=== PATIENT | male | born 1965 | race African-American/Black ===

== ENCOUNTER 2017-01-08 11:34 | Emergency (ER) | payer MEDICAID ==
[~2017-01-08] VITALS: Ht 175.3 cm; Wt 137.0 kg
[~2017-01-08 11:34] MED LIST: ASPI-1079 PO; ASPI-518 PO; FAMO20TA96 PO; LANS15CA5 PO; METF-240; METO50TA95 PO; NASOI NS
[2017-01-08 12:44] VITALS: BP 134/97
== END 2017-01-08 14:39 | disposition home or self-care (01) ==
LOC: ER 11:59
DX: M25.562 Pain in left knee (principal); G89.29 Other chronic pain; Z79.82 Long term (current) use of aspirin; Z88.6 Allergy status to analgesic agent; Z79.899 Other long term (current) drug therapy
CPT/HCPCS: 99284

== ENCOUNTER 2017-03-26 18:39 | Emergency (ER) | payer MEDICAID ==
[~2017-03-26] VITALS: Ht 154.9 cm; Wt 118.0 kg
[~2017-03-26 18:39] MED LIST changes: -METF-240; +METF500T4
[2017-03-26 19:11] VITALS: BP 138/84
== END 2017-03-27 01:08 | disposition left against medical advice (07) ==
LOC: ER 03-27 01:02
DX: M25.562 Pain in left knee (principal); Z53.21 Procedure and treatment not carried out due to patient leaving prior to being seen by health care provider

== ENCOUNTER 2017-12-26 19:08 | Emergency (ER) | payer MEDICAID ==
[~2017-12-26 19:08] MED LIST changes: +FAMO-135 PO; -FAMO20TA96 PO; +LANS15CA12 PO; -LANS15CA5 PO
== END 2017-12-26 21:04 | disposition left against medical advice (07) ==
LOC: ER 20:30
DX: Z53.21 Procedure and treatment not carried out due to patient leaving prior to being seen by health care provider (principal)

== ENCOUNTER 2019-02-18 11:34 | Emergency (ER) | payer MEDICAID ==
[~2019-02-18] VITALS: Ht 182.9 cm; Wt 118.0 kg
[~2019-02-18 11:34] MED LIST changes: -ASPI-1079 PO; -FAMO-135 PO; -LANS15CA12 PO; +METF-414 PO; -METF500T4; +SIMV20TA6 PO
[2019-02-18] MEDS ORDERED: SODIUM CHLORIDE 0.9% 1,000 ML IV ONE ×3 (11:55→15:30)
[2019-02-18 12:27] LABS: HEMATOCRIT. 36.5 % (42.0-52.0); HEMOGLOBIN. 12.2 g/dL (14.0-18.0); MEAN CORPUSCULAR HEMOGLOBIN 29.7 pg (28.0-32.0); MEAN CORPUSCULAR VOLUME 88.9 fL (80.0-94.0); MEAN PLATELET VOLUME 7.9 fl (7.4-10.4); PLATELET 258 x1000/uL (130-400); RED CELL DISTRIBUTION WIDTH 17.2 % (11.6-14.6)
[2019-02-18 12:31] LABS: CHLORIDE 106 mEq/L (98-107)
[2019-02-18 12:33] LABS: PROTHROMBIN TIME 10.7 sec (9.6-11.0)
[2019-02-18] MEDS ORDERED: INSULIN REGULAR (HUMULIN R) 300UNITS/3ML SUBCUT ONE (13:00)
[2019-02-18 13:45] LABS: PLATELET ESTIMATE NORMAL
[2019-02-18] MEDS ORDERED: INSULIN REGULAR (HUMULIN R) 300UNITS/3ML SUBCUT NR (13:45)
[2019-02-18 16:30] VITALS: BP 165/91
[2019-02-25] MEDS ORDERED: GABA-531 MT (11:57)
== END 2019-02-18 16:50 | disposition home or self-care (01) ==
LOC: ER 11:34
DX: E11.65 Type 2 diabetes mellitus with hyperglycemia (principal); I10 Essential (primary) hypertension; Z88.5 Allergy status to narcotic agent; Z79.84 Long term (current) use of oral hypoglycemic drugs; Z79.82 Long term (current) use of aspirin; Z79.899 Other long term (current) drug therapy
CPT/HCPCS: 36415; 80053; 82962; 84484; 85025; 85610; 93005; 96360; 96361; 99284; J1815; J7030

== ENCOUNTER 2020-04-12 18:05 | Emergency (ER) | payer MEDICAID ==
[~2020-04-12] VITALS: Ht 177.8 cm; Wt 110.0 kg
[~2020-04-12 18:05] MED LIST changes: +GABA-531 MT; -METF-414 PO; -NASOI NS; +SIMV-43 PO; -SIMV20TA6 PO
[2020-04-12] MEDS ORDERED: INSULIN REGULAR (HUMULIN R) 300UNITS/3ML SUBCUT ONE (19:00)
[2020-04-12] MEDS ORDERED: METOPROLOL TARTRATE 25MG TABLET PO ONE (19:00)
[2020-04-12] MEDS ORDERED: ASPIRIN 81MG TABLET PO ONE (19:00)
[2020-04-12 19:28] LABS: BASOPHILS % 0.6 % (0.0-2.0); EOSINOPHILS % 1.7 % (0.0-5.0); HEMATOCRIT. 46.1 % (42.0-52.0); HEMOGLOBIN. 15.2 g/dL (14.0-18.0); LYMPHOCYTES % 18.7 % (20.0-50.0); MEAN CORPUSCULAR HEMOGLOBIN 29.5 pg (28.0-32.0); MEAN CORPUSCULAR VOLUME 89.3 fL (80.0-94.0); MEAN PLATELET VOLUME 8.7 fl (7.4-10.4); MONOCYTES % 11.5 % (2.0-8.0); NEUTROPHILS % 67.5 % (40.0-76.0); PLATELET 223 x1000/uL (130-400); RED BLOOD CELL COUNT 5.16 mill/uL (4.7-6.1); RED CELL DISTRIBUTION WIDTH 14.3 % (11.6-14.6)
[2020-04-12 19:39] LABS: D-DIMER 1.24 mg/L FEU (<0.50); PROTHROMBIN TIME 10.4 sec (9.6-11.0)
[2020-04-12 19:41] LABS: CHLORIDE 103 mEq/L (98-107)
[2020-04-12 21:02] VITALS: BP 136/80
== END 2020-04-12 22:05 | disposition left against medical advice (07) ==
LOC: ER 18:05 → CANBEDREQ 22:43
DX: I48.91 Unspecified atrial fibrillation (principal); E11.9 Type 2 diabetes mellitus without complications; I10 Essential (primary) hypertension; Z79.82 Long term (current) use of aspirin; Z88.6 Allergy status to analgesic agent; Z79.899 Other long term (current) drug therapy
CPT/HCPCS: 36415; 71045; 80053; 82962; 83880; 84484; 85025; 85379; 85610; 85730; 93005; 96372; 99285; J1815; Z7610

== ENCOUNTER 2020-06-30 23:33 | Emergency (ER) | payer MEDICAID ==
[~2020-06-30] VITALS: Ht 175.3 cm; Wt 125.0 kg
[2020-07-01 02:11] LABS: CHLORIDE 107 mEq/L (98-107)
[2020-07-01 02:16] LABS: CLARITY URINE CLEAR (CLEAR); COLOR URINE YELLOW (YELLOW); KETONES URINE TRACE (NEGATIVE); LEUKOCYTE ESTERASE URINE NEGATIVE (NEGATIVE); NITRITE URINE NEGATIVE (NEGATIVE); OCCULT BLOOD URINE NEGATIVE (NEGATIVE); PROTEIN URINE TRACE (NEGATIVE); SPECIFIC GRAVITY URINE 1.033 (1.005-1.030)
[2020-07-01 02:17] LABS: BASOPHILS % 0.9 % (0.0-2.0); EOSINOPHILS % 1.3 % (0.0-5.0); HEMATOCRIT. 46.4 % (42.0-52.0); HEMOGLOBIN. 15.4 g/dL (14.0-18.0); LYMPHOCYTES % 9.6 % (20.0-50.0); MEAN CORPUSCULAR HEMOGLOBIN 29.3 pg (28.0-32.0); MEAN CORPUSCULAR VOLUME 88.3 fL (80.0-94.0); MEAN PLATELET VOLUME 8.2 fl (7.4-10.4); MONOCYTES % 9.5 % (2.0-8.0); NEUTROPHILS % 78.7 % (40.0-76.0); PLATELET 239 x1000/uL (130-400); RED BLOOD CELL COUNT 5.25 mill/uL (4.7-6.1); RED CELL DISTRIBUTION WIDTH 15.1 % (11.6-14.6)
[2020-07-01 02:21] LABS: BETA HYDROXYBUTYRATE 0.1 mMol/L (0.0-0.3)
[2020-07-01 02:22] VITALS: BP 155/93
[2020-07-01] MEDS ORDERED: MAGNESIUM/ALUMINUM HYDROXIDE/SIMETHICONE 30ML UDC PO STA (03:09)
[2020-07-01] MEDS ORDERED: DICYCLOMINE 10 MG/5 ML ORAL SYR PO STA (03:18)
[2020-07-01] MEDS ORDERED: VISCOUS LIDOCAINE 2% 15 ML UDC PO STA (03:18)
== END 2020-07-01 04:02 | disposition home or self-care (01) ==
LOC: ER 23:33
DX: R07.89 Other chest pain (principal); I48.91 Unspecified atrial fibrillation; E78.00 Pure hypercholesterolemia, unspecified; I10 Essential (primary) hypertension; E11.649 Type 2 diabetes mellitus with hypoglycemia without coma; Z79.4 Long term (current) use of insulin; Z88.8 Allergy status to other drugs, medicaments and biological substances; Z88.6 Allergy status to analgesic agent; Z79.899 Other long term (current) drug therapy
CPT/HCPCS: 36415; 71045; 80053; 81003; 82010; 82962; 84484; 85025; 93005; 99284

== ENCOUNTER 2020-10-05 02:50 | Emergency (ER) | payer MEDICAID ==
[~2020-10-05] VITALS: Ht 172.7 cm; Wt 122.0 kg
[2020-10-05 03:14] VITALS: BP 158/101
== END 2020-10-05 06:59 | disposition left against medical advice (07) ==
LOC: ER 02:50
DX: Z53.21 Procedure and treatment not carried out due to patient leaving prior to being seen by health care provider (principal)

== ENCOUNTER 2021-05-27 15:59 | Inpatient (IN) | payer MEDICAID ==
[~2021-05-27] VITALS: Ht 177.8 cm; Wt 134.5 kg
[~2021-05-27 15:59] MED LIST changes: -GABA-531 MT; +GABA-532 MT
[2021-05-27 18:17] LABS: BASOPHILS % 0.9 % (0.0-2.0); HEMATOCRIT. 53.6 % (42.0-52.0); HEMOGLOBIN. 17.9 g/dL (14.0-18.0); LYMPHOCYTES % 14.1 % (20.0-50.0); MEAN CORPUSCULAR HEMOGLOBIN 29.9 pg (28.0-32.0); MEAN CORPUSCULAR VOLUME 89.4 fL (80.0-94.0); MEAN PLATELET VOLUME 8.3 fl (7.4-10.4); MONOCYTES % 9.2 % (2.0-8.0); NEUTROPHILS % 73.8 % (40.0-76.0); PLATELET 185 x1000/uL (130-400); RED BLOOD CELL COUNT 5.99 mill/uL (4.7-6.1); RED CELL DISTRIBUTION WIDTH 14.8 % (11.6-14.6)
[2021-05-27 18:23] LABS: CHLORIDE 103 mEq/L (98-107)
[2021-05-27] MEDS ORDERED: DEXTROSE 50% WATER 50ML SYRINGE IV PRN (22:15)
[2021-05-27] MEDS: INSULIN LISPRO (MEDIUM DOSE) 100 UNITS/ML SUBCUT SCH (22:30)
[2021-05-27] MEDS: BLOOD SUGAR DIAGNOSTIC STRIP TEST SCH (22:30)
[2021-05-27] MEDS: ENOXAPARIN 30MG/0.3ML SYR SUBCUT SCH (23:58)
[2021-05-27] MEDS: ATORVASTATIN CALCIUM 40MG TABLET PO SCH (23:58)
[2021-05-27] MEDS: LISINOPRIL 20MG TABLET PO SCH (23:59)
[2021-05-27] MEDS: ASPIRIN 81MG EC TABLET PO SCH (23:59)
[2021-05-28] MEDS ORDERED: ACETAMINOPHEN 325MG TABLET PO PRN (06:30)
[2021-05-28] MEDS: INSULIN LISPRO (MEDIUM DOSE) 100 UNITS/ML SUBCUT SCH ×4 (07:00→23:07)
[2021-05-28] MEDS: BLOOD SUGAR DIAGNOSTIC STRIP TEST SCH ×4 (07:17→21:00)
[2021-05-28] MEDS: ASPIRIN 81MG EC TABLET PO SCH (09:22)
[2021-05-28] MEDS: METOPROLOL TARTRATE 50MG TABLET PO SCH ×2 (09:24)
[2021-05-28] MEDS: LISINOPRIL 20MG TABLET PO SCH (09:25)
[2021-05-28] MEDS: ENOXAPARIN 30MG/0.3ML SYR SUBCUT SCH (09:28)
[2021-05-28] MEDS ORDERED: DEXTROSE 50% WATER 50ML SYRINGE IV PRN (10:15)
[2021-05-28] MEDS ORDERED: MAGNESIUM/ALUMINUM HYDROXIDE/SIMETHICONE 30ML UDC PO PRN (10:15)
[2021-05-28] MEDS ORDERED: CLONIDINE 0.1MG TABLET PO PRN (10:15)
[2021-05-28] MEDS ORDERED: IOHEXOL-350 100 ML BOTTLE ONE (10:43)
[2021-05-28] MEDS: GUAIFENESIN 600MG ER TABLET PO SCH ×2 (11:00→23:47)
[2021-05-28] MEDS ORDERED: ENOXAPARIN 80MG/0.8ML SYR SUBCUT NR (12:00)
[2021-05-28] MEDS: DILTIAZEM HCL 60MG TABLET PO SCH ×2 (13:11→18:00)
[2021-05-28 19:40] LABS: INR 1.1; PROTHROMBIN TIME 11.6 sec (9.6-11.0)
[2021-05-28] MEDS: ENOXAPARIN 100MG/ML SYR SUBCUT SCH (22:00)
[2021-05-28] MEDS: ATORVASTATIN CALCIUM 40MG TABLET PO SCH (23:47)
[2021-05-29] VITALS (17 sets, daily range): BP systolic 116–160; BP diastolic 34–96
[2021-05-29] MEDS: DILTIAZEM HCL 60MG TABLET PO SCH ×2 (03:06→06:00)
[2021-05-29] MEDS ORDERED: LORA10CA MT (05:14)
[2021-05-29 07:46] LABS: BASOPHILS % 0.6 % (0.0-2.0); EOSINOPHILS % 2.9 % (0.0-5.0); HEMATOCRIT. 49.9 % (42.0-52.0); HEMOGLOBIN. 16.4 g/dL (14.0-18.0); LYMPHOCYTES % 17.1 % (20.0-50.0); MEAN CORPUSCULAR HEMOGLOBIN 29.7 pg (28.0-32.0); MEAN CORPUSCULAR VOLUME 90.4 fL (80.0-94.0); MEAN PLATELET VOLUME 8.7 fl (7.4-10.4); MONOCYTES % 13.9 % (2.0-8.0); NEUTROPHILS % 65.5 % (40.0-76.0); PLATELET 163 x1000/uL (130-400); RED BLOOD CELL COUNT 5.52 mill/uL (4.7-6.1); RED CELL DISTRIBUTION WIDTH 14.5 % (11.6-14.6)
[2021-05-29 08:18] LABS: CHLORIDE 106 mEq/L (98-107)
[2021-05-29] MEDS: PANTOPRAZOLE SODIUM 40 MG/VIAL IV SCH (08:32)
[2021-05-29] MEDS: LISINOPRIL 20MG TABLET PO SCH (08:33)
[2021-05-29] MEDS: METOPROLOL TARTRATE 50MG TABLET PO SCH ×2 (08:33→21:05)
[2021-05-29] MEDS: ASPIRIN 81MG EC TABLET PO SCH (08:33)
[2021-05-29] MEDS: GUAIFENESIN 600MG ER TABLET PO SCH ×2 (08:34→21:04)
[2021-05-29] MEDS: BLOOD SUGAR DIAGNOSTIC STRIP TEST SCH ×4 (08:34→21:00)
[2021-05-29] MEDS: INSULIN LISPRO (MEDIUM DOSE) 100 UNITS/ML SUBCUT SCH ×4 (08:36→21:04)
[2021-05-29 08:38] LABS: PHOSPHORUS 2.7 mg/dL (2.5-4.9)
[2021-05-29 08:40] LABS: LDL CHOLESTEROL 87 mg/dL (5-100)
[2021-05-29 08:41] LABS: T4 FREE 1.18 ng/dL (0.76-1.46)
[2021-05-29 08:44] LABS: HDL CHOLESTEROL 34 mg/dL (40-59)
[2021-05-29] MEDS: ENOXAPARIN 100MG/ML SYR SUBCUT SCH (10:22)
[2021-05-29 19:59] LABS: INR 1.1; PROTHROMBIN TIME 11.4 sec (9.6-11.0)
[2021-05-29] MEDS: ATORVASTATIN CALCIUM 40MG TABLET PO SCH (21:04)
[2021-05-29] MEDS: ENOXAPARIN 150MG/ML SYR SUBCUT SCH (21:05)
[2021-05-30] VITALS (10 sets, daily range): BP systolic 117–155; BP diastolic 60–100
[2021-05-30 05:44] LABS: BASOPHILS % 0.8 % (0.0-2.0); EOSINOPHILS % 3.7 % (0.0-5.0); HEMATOCRIT. 48.4 % (42.0-52.0); LYMPHOCYTES % 15.9 % (20.0-50.0); MEAN CORPUSCULAR HEMOGLOBIN 29.9 pg (28.0-32.0); MEAN CORPUSCULAR VOLUME 90.3 fL (80.0-94.0); MEAN PLATELET VOLUME 8.5 fl (7.4-10.4); MONOCYTES % 12.6 % (2.0-8.0); PLATELET 161 x1000/uL (130-400); RED BLOOD CELL COUNT 5.36 mill/uL (4.7-6.1); RED CELL DISTRIBUTION WIDTH 14.5 % (11.6-14.6)
[2021-05-30 05:47] LABS: CHLORIDE 105 mEq/L (98-107)
[2021-05-30] MEDS: BLOOD SUGAR DIAGNOSTIC STRIP TEST SCH ×4 (07:30→21:04)
[2021-05-30] MEDS: PANTOPRAZOLE SODIUM 40 MG/VIAL IV SCH (08:20)
[2021-05-30] MEDS: INSULIN LISPRO (MEDIUM DOSE) 100 UNITS/ML SUBCUT SCH ×4 (08:21→21:07)
[2021-05-30] MEDS: LISINOPRIL 20MG TABLET PO SCH (08:23)
[2021-05-30] MEDS: ASPIRIN 81MG EC TABLET PO SCH (08:23)
[2021-05-30] MEDS: GUAIFENESIN 600MG ER TABLET PO SCH ×2 (08:23→20:03)
[2021-05-30] MEDS: ENOXAPARIN 150MG/ML SYR SUBCUT SCH ×2 (08:25→21:09)
[2021-05-30] MEDS: METOPROLOL TARTRATE 50MG TABLET PO SCH ×2 (08:25→20:05)
[2021-05-30 11:00] LABS: BG BASE EXCESS 2.3 mmol/L (-2.0-2.0); BG DEOXYHEMOGLOBIN 12.5 % (0.0-5.0); BG FRACTION INSPIRED OXYGEN 21; BG HCO3 ACT 30.5 mmol/L (22.0-26.0); BG METHEMOGLOBIN 0.2 % (0.0-1.5); BG OXYGEN SATURATION 87.3 % (92.0-98.5); BG OXYHEMOGLOBIN 86.3 % (94.0-97.0); BG PCO2 61.8 mmHg (35.0-45.0); BG PH 7.311 (7.350-7.450); BG SAMPLE SITE RIGHT RADIAL; BG TOTAL HEMOGLOBIN 16.3 g/dL (12.0-18.0); BG VENT MODE ROOM AIR
[2021-05-30] MEDS: ATORVASTATIN CALCIUM 40MG TABLET PO SCH (20:03)
[2021-05-31] VITALS: BP 136/85
[2021-05-31] MEDS: BLOOD SUGAR DIAGNOSTIC STRIP TEST SCH ×3 (07:42→17:14)
[2021-05-31] MEDS: FAMOTIDINE 20MG/2ML VIAL IV SCH ×2 (08:46→09:00)
[2021-05-31] MEDS: ASPIRIN 81MG EC TABLET PO SCH (08:51)
[2021-05-31] MEDS: GUAIFENESIN 600MG ER TABLET PO SCH ×2 (08:51→09:00)
[2021-05-31 08:57] VITALS: BP 152/112
[2021-05-31] MEDS: LISINOPRIL 20MG TABLET PO SCH (08:58)
[2021-05-31] MEDS: METOPROLOL TARTRATE 50MG TABLET PO SCH (08:59)
[2021-05-31] MEDS: INSULIN LISPRO (MEDIUM DOSE) 100 UNITS/ML SUBCUT SCH ×3 (09:00→18:23)
[2021-05-31] MEDS: ENOXAPARIN 150MG/ML SYR SUBCUT SCH (09:02)
[2021-05-31 18:18] VITALS: BP 148/89
[2021-05-31] MEDS ORDERED: METOPROLOL TARTRATE 100MG TABLET PO SCH (21:00)
== END 2021-05-31 18:51 | disposition home or self-care (01) | DRG 134 ==
LOC: ER 15:59 → MICUSO 20:04 → EDBEDREQ 20:06 → EDBEDREQTM 20:06 → 7EST 05-28 15:17 → MICUSO 05-28 16:33 → CVICU 05-29 02:23 → 5EST 05-29 09:28
PROVIDERS: ADMIT Internal Medicine; ATTEND Internal Medicine
DX: I26.99 Other pulmonary embolism without acute cor pulmonale (principal); J96.01 Acute respiratory failure with hypoxia; C85.90 Non-Hodgkin lymphoma, unspecified, unspecified site; E11.40 Type 2 diabetes mellitus with diabetic neuropathy, unspecified; E11.65 Type 2 diabetes mellitus with hyperglycemia; I82.432 Acute embolism and thrombosis of left popliteal vein; I48.91 Unspecified atrial fibrillation; E78.5 Hyperlipidemia, unspecified; E44.1 Mild protein-calorie malnutrition; Z20.822 Contact with and (suspected) exposure to COVID-19; F17.200 Nicotine dependence, unspecified, uncomplicated; E66.01 Morbid (severe) obesity due to excess calories; Z88.5 Allergy status to narcotic agent; Z88.8 Allergy status to other drugs, medicaments and biological substances; Z79.82 Long term (current) use of aspirin; Z79.899 Other long term (current) drug therapy; Z83.3 Family history of diabetes mellitus; Z68.41 Body mass index [BMI] 40.0-44.9, adult; Z86.16 Personal history of COVID-19
CPT/HCPCS: 36415; 36600; 71045; 71275; 80048; 80053; 80061; 80076; 82375; 82805; 82962; 83036; 83735; 83880; 84100; 84439; 84443; 84484; 85025; 85379; 87426; 93005; 93306; 93970; 99285; C9113; J1650; J1815; J3490; Q9967

== ENCOUNTER 2021-06-05 14:11 | Emergency (ER) | payer MEDICAID ==
[~2021-06-05] VITALS: Ht 170.2 cm; Wt 129.0 kg
[~2021-06-05 14:11] MED LIST changes: +LORA10CA MT
[2021-06-05] MEDS ORDERED: ALBUTEROL 6.7GM HFA INHALER ORI ONE (16:30)
[2021-06-05] MEDS ORDERED: OXYMETAZOLINE HCL NASAL SPRAY 15ML BOTHNSTRLS SCH (16:30)
[2021-06-05 17:23] LABS: BASOPHILS % 0.8 % (0.0-2.0); EOSINOPHILS % 2.1 % (0.0-5.0); HEMOGLOBIN. 16.4 g/dL (14.0-18.0); LYMPHOCYTES % 17.2 % (20.0-50.0); MEAN CORPUSCULAR HEMOGLOBIN 29.9 pg (28.0-32.0); MEAN CORPUSCULAR VOLUME 89.5 fL (80.0-94.0); MEAN PLATELET VOLUME 8.4 fl (7.4-10.4); MONOCYTES % 9.3 % (2.0-8.0); NEUTROPHILS % 70.6 % (40.0-76.0); PLATELET 230 x1000/uL (130-400); RED BLOOD CELL COUNT 5.48 mill/uL (4.7-6.1); RED CELL DISTRIBUTION WIDTH 14.6 % (11.6-14.6)
[2021-06-05 17:29] LABS: CHLORIDE 106 mEq/L (98-107)
[2021-06-05] MEDS ORDERED: LEVO750T46 MT (18:09)
[2021-06-05] MEDS ORDERED: ALBU18HF2 IH (18:10)
[2021-06-05] MEDS ORDERED: LEVOFLOXACIN 250MG TABLET PO ONE ×2 (18:15)
[2021-06-05 19:19] VITALS: BP 122/82
== END 2021-06-05 19:21 | disposition home or self-care (01) ==
LOC: ER 14:11
DX: J18.9 Pneumonia, unspecified organism (principal); R03.0 Elevated blood-pressure reading, without diagnosis of hypertension; I51.7 Cardiomegaly; Z86.711 Personal history of pulmonary embolism; Z88.8 Allergy status to other drugs, medicaments and biological substances
CPT/HCPCS: 36415; 71045; 80053; 83880; 84484; 85025; 93005; 99285

== ENCOUNTER 2021-09-16 17:28 | Emergency (ER) | payer MEDICAID ==
[~2021-09-16] VITALS: Ht 175.3 cm; Wt 127.0 kg
[~2021-09-16 17:28] MED LIST changes: +ALBU18HF2 IH; +LEVO750T46 MT
[2021-09-16 18:16] LABS: EOSINOPHILS % 2.1 % (0.0-5.0); HEMATOCRIT. 52.6 % (42.0-52.0); LYMPHOCYTES % 18.7 % (20.0-50.0); MEAN CORPUSCULAR HEMOGLOBIN 29.3 pg (28.0-32.0); MEAN CORPUSCULAR VOLUME 90.7 fL (80.0-94.0); MEAN PLATELET VOLUME 8.2 fl (7.4-10.4); MONOCYTES % 9.6 % (2.0-8.0); NEUTROPHILS % 68.6 % (40.0-76.0); PLATELET 203 x1000/uL (130-400); RED BLOOD CELL COUNT 5.79 mill/uL (4.7-6.1); RED CELL DISTRIBUTION WIDTH 14.7 % (11.6-14.6)
[2021-09-16 18:25] LABS: CHLORIDE 101 mEq/L (98-107)
[2021-09-16 20:23] VITALS: BP 162/99
== END 2021-09-16 20:24 | disposition home or self-care (01) ==
LOC: ER 17:28
DX: E87.6 Hypokalemia (principal)
CPT/HCPCS: 36415; 80053; 85025; 93005; 99284

== ENCOUNTER 2022-01-25 23:22 | Emergency (ER) | payer MEDICAID ==
[~2022-01-25] VITALS: Ht 175.3 cm; Wt 132.0 kg
[2022-01-26] MEDS ORDERED: ASPIRIN 81MG TABLET PO ONE (00:45)
[2022-01-26 02:46] LABS: CHLORIDE 97 mEq/L (98-107)
[2022-01-26 02:50] LABS: BASOPHILS % 0.6 % (0.0-2.0); EOSINOPHILS % 1.4 % (0.0-5.0); HEMATOCRIT. 51.3 % (42.0-52.0); HEMOGLOBIN. 17.1 g/dL (14.0-18.0); LYMPHOCYTES % 17.7 % (20.0-50.0); MEAN CORPUSCULAR VOLUME 89.8 fL (80.0-94.0); MEAN PLATELET VOLUME 8.9 fl (7.4-10.4); MONOCYTES % 10.4 % (2.0-8.0); NEUTROPHILS % 69.9 % (40.0-76.0); PLATELET 206 x1000/uL (130-400); RED BLOOD CELL COUNT 5.71 mill/uL (4.7-6.1); RED CELL DISTRIBUTION WIDTH 14.7 % (11.6-14.6)
[2022-01-26] MEDS ORDERED: IOHEXOL-350 100 ML BOTTLE ONE (04:20)
[2022-01-26] MEDS ORDERED: VISCOUS LIDOCAINE 2% 15 ML UDC PO STA (04:22)
[2022-01-26] MEDS ORDERED: MAGNESIUM/ALUMINUM HYDROXIDE/SIMETHICONE 30ML UDC PO STA (04:22)
[2022-01-26 06:06] VITALS: BP 118/70
== END 2022-01-26 06:25 | disposition left against medical advice (07) ==
LOC: ER 23:22 → CANBEDREQ 01-26 20:10
DX: R07.2 Precordial pain (principal); I10 Essential (primary) hypertension; I48.20 Chronic atrial fibrillation, unspecified; E11.9 Type 2 diabetes mellitus without complications; E66.01 Morbid (severe) obesity due to excess calories; Z68.41 Body mass index [BMI] 40.0-44.9, adult; Z86.711 Personal history of pulmonary embolism; Z79.82 Long term (current) use of aspirin; Z79.899 Other long term (current) drug therapy; Z88.8 Allergy status to other drugs, medicaments and biological substances; Z88.5 Allergy status to narcotic agent
CPT/HCPCS: 36415; 71045; 71275; 80053; 83880; 84484; 85025; 93005; 99285; Q9967

== ENCOUNTER 2022-02-04 23:28 | Emergency (ER) | payer MEDICAID ==
[~2022-02-04] VITALS: Ht 175.3 cm; Wt 135.1 kg
[2022-02-05 00:35] LABS: BASOPHILS % 0.9 % (0.0-2.0); EOSINOPHILS % 2.2 % (0.0-5.0); HEMATOCRIT. 49.8 % (42.0-52.0); HEMOGLOBIN. 16.6 g/dL (14.0-18.0); LYMPHOCYTES % 16.7 % (20.0-50.0); MEAN CORPUSCULAR HEMOGLOBIN 30.7 pg (28.0-32.0); MEAN CORPUSCULAR VOLUME 91.8 fL (80.0-94.0); MEAN PLATELET VOLUME 8.9 fl (7.4-10.4); MONOCYTES % 9.8 % (2.0-8.0); NEUTROPHILS % 70.4 % (40.0-76.0); PLATELET 201 x1000/uL (130-400); RED BLOOD CELL COUNT 5.42 mill/uL (4.7-6.1); RED CELL DISTRIBUTION WIDTH 14.4 % (11.6-14.6)
[2022-02-05 00:51] LABS: CHLORIDE 102 mEq/L (98-107)
[2022-02-05 01:39] VITALS: BP 127/65
== END 2022-02-05 01:56 | disposition home or self-care (01) ==
LOC: ER 23:28
DX: R07.89 Other chest pain (principal); R00.2 Palpitations; I10 Essential (primary) hypertension; E11.9 Type 2 diabetes mellitus without complications; I48.91 Unspecified atrial fibrillation; I45.10 Unspecified right bundle-branch block; Z86.711 Personal history of pulmonary embolism; Z79.01 Long term (current) use of anticoagulants; Z79.899 Other long term (current) drug therapy; Z88.8 Allergy status to other drugs, medicaments and biological substances
CPT/HCPCS: 36415; 71045; 80053; 83880; 84484; 85025; 93005; 99285

== ENCOUNTER 2022-02-24 03:53 | Emergency (ER) | payer MEDICAID ==
[~2022-02-24] VITALS: Ht 177.8 cm; Wt 100.0 kg
[2022-02-24 05:10] LABS: CHLORIDE 104 mEq/L (98-107)
[2022-02-24 05:22] LABS: BASOPHILS % 0.6 % (0.0-2.0); EOSINOPHILS % 3.1 % (0.0-5.0); HEMATOCRIT. 48.6 % (42.0-52.0); HEMOGLOBIN. 16.4 g/dL (14.0-18.0); LYMPHOCYTES % 23.9 % (20.0-50.0); MEAN CORPUSCULAR HEMOGLOBIN 30.8 pg (28.0-32.0); MEAN CORPUSCULAR VOLUME 91.4 fL (80.0-94.0); MEAN PLATELET VOLUME 8.9 fl (7.4-10.4); MONOCYTES % 12.3 % (2.0-8.0); NEUTROPHILS % 60.1 % (40.0-76.0); PLATELET 168 x1000/uL (130-400); RED BLOOD CELL COUNT 5.31 mill/uL (4.7-6.1); RED CELL DISTRIBUTION WIDTH 14.4 % (11.6-14.6)
[2022-02-24 06:30] VITALS: BP 158/92
== END 2022-02-24 06:51 | disposition home or self-care (01) ==
LOC: ER 03:53
DX: R00.2 Palpitations (principal); I48.91 Unspecified atrial fibrillation; I10 Essential (primary) hypertension; E11.9 Type 2 diabetes mellitus without complications; Z88.5 Allergy status to narcotic agent; Z91.041 Radiographic dye allergy status; Z88.6 Allergy status to analgesic agent; Z98.890 Other specified postprocedural states; Z90.49 Acquired absence of other specified parts of digestive tract; Z79.82 Long term (current) use of aspirin
CPT/HCPCS: 36415; 71045; 80053; 84484; 85025; 93005; 99285

== ENCOUNTER 2022-04-10 07:26 | Emergency (ER) | payer MEDICAID ==
[~2022-04-10] VITALS: Ht 175.3 cm; Wt 134.0 kg
[2022-04-10 09:47] LABS: BASOPHILS % 0.7 % (0.0-2.0); EOSINOPHILS % 1.5 % (0.0-5.0); HEMATOCRIT. 47.7 % (42.0-52.0); LYMPHOCYTES % 16.7 % (20.0-50.0); MEAN CORPUSCULAR HEMOGLOBIN 30.2 pg (28.0-32.0); MEAN CORPUSCULAR VOLUME 90.2 fL (80.0-94.0); MONOCYTES % 9.9 % (2.0-8.0); NEUTROPHILS % 71.2 % (40.0-76.0); PLATELET 203 x1000/uL (130-400); RED BLOOD CELL COUNT 5.29 mill/uL (4.7-6.1); RED CELL DISTRIBUTION WIDTH 14.5 % (11.6-14.6)
[2022-04-10 09:56] LABS: CHLORIDE 101 mEq/L (98-107)
[2022-04-10 14:37] LABS: VITAMIN B12 SERUM 1929 pg/mL (211-911)
[2022-04-10] MEDS ORDERED: N325 SL (14:49)
[2022-04-10] MEDS ORDERED: ASPI-1497 MT (14:49)
[2022-04-10] MEDS ORDERED: ASPIRIN 81MG TABLET PO NR (15:00)
[2022-04-10 15:32] VITALS: BP 145/89
== END 2022-04-10 15:34 | disposition home or self-care (01) ==
LOC: ER 07:26
DX: R07.89 Other chest pain (principal); E11.9 Type 2 diabetes mellitus without complications; I10 Essential (primary) hypertension; Z88.6 Allergy status to analgesic agent; Z88.5 Allergy status to narcotic agent; Z91.041 Radiographic dye allergy status; Z79.82 Long term (current) use of aspirin; Z98.890 Other specified postprocedural states; Z90.49 Acquired absence of other specified parts of digestive tract; Z13.9 Encounter for screening, unspecified
CPT/HCPCS: 36415; 71045; 80053; 82607; 83880; 84484; 85025; 93005; 99285

== ENCOUNTER 2022-08-20 13:23 | Emergency (ER) | payer MEDICAID ==
[~2022-08-20] VITALS: Ht 170.2 cm; Wt 118.0 kg
[~2022-08-20 13:23] MED LIST changes: +ASPI-1497 MT; -LEVO750T46 MT; +LEVO750T68 MT; +N325 SL
[2022-08-20 14:24] VITALS: BP 138/88
[2022-08-20 14:24] LABS: BASOPHILS % 0.9 % (0.0-2.0); EOSINOPHILS % 2.3 % (0.0-5.0); HEMATOCRIT. 48.9 % (42.0-52.0); HEMOGLOBIN. 16.5 g/dL (14.0-18.0); LYMPHOCYTES % 15.7 % (20.0-50.0); MEAN CORPUSCULAR HEMOGLOBIN 30.6 pg (28.0-32.0); MEAN CORPUSCULAR VOLUME 90.5 fL (80.0-94.0); MEAN PLATELET VOLUME 8.3 fl (7.4-10.4); NEUTROPHILS % 72.1 % (40.0-76.0); PLATELET 214 x1000/uL (130-400); RED CELL DISTRIBUTION WIDTH 14.1 % (11.6-14.6)
[2022-08-20 14:30] LABS: CHLORIDE 100 mEq/L (98-107)
[2022-08-20] MEDS ORDERED: ACETAMINOPHEN 325MG TABLET PO NR (15:00)
== END 2022-08-20 18:29 | disposition home or self-care (01) ==
LOC: ER 13:23
DX: R07.89 Other chest pain (principal); I10 Essential (primary) hypertension; E11.9 Type 2 diabetes mellitus without complications; I45.10 Unspecified right bundle-branch block; Z79.899 Other long term (current) drug therapy; Z79.01 Long term (current) use of anticoagulants; Z79.82 Long term (current) use of aspirin
CPT/HCPCS: 36415; 71045; 80053; 83880; 84484; 85025; 93005; 99285

== ENCOUNTER 2023-12-16 09:06 | Emergency (ER) | payer MEDICAID ==
[~2023-12-16] VITALS: Ht 180.3 cm; Wt 131.0 kg
[2023-12-16 09:08] VITALS: O2SAT 96
[2023-12-16] MEDS: AMIODARONE 150MG/100ML PREMIX 100 ML IV ONE (09:29)
[2023-12-16 09:33] LABS: BASOPHILS % 1.1 % (0.0-2.0); EOSINOPHILS % 5.4 % (0.0-5.0); HEMATOCRIT. 47.6 % (42.0-52.0); HEMOGLOBIN. 16.3 g/dL (14.0-18.0); MEAN CORPUSCULAR HEMOGLOBIN 31.3 pg (28.0-32.0); MEAN CORPUSCULAR HGB CONC 34.1 g/dL (31.0-37.0); MEAN CORPUSCULAR VOLUME 91.6 fL (80.0-94.0); MEAN PLATELET VOLUME 7.7 fl (7.4-10.4); MONOCYTES % 14.8 % (2.0-8.0); NEUTROPHILS % 54.7 % (40.0-76.0); PLATELET 224 x1000/uL (130-400); RED CELL DISTRIBUTION WIDTH 14.6 % (11.6-14.6); WHITE BLOOD COUNT 7.1 x1000/uL (4.5-11.0)
[2023-12-16 09:49] LABS: ALANINE AMINOTRANSFERASE 23 IU/L (10-49); ALBUMIN 3.6 g/dL (3.2-4.8); ASPARTATE AMINOTRANSFERASE 19 IU/L (<34); BILIRUBIN TOTAL 0.5 mg/dL (0.1-1.0); CALCIUM 8.7 mg/dL (8.7-10.4); CARBON DIOXIDE 32 mEq/L (21-32); CHLORIDE 101 mEq/L (98-107); CREATININE 1.2 mg/dL (0.6-1.3); GLUCOSE 201 mg/dL (70-105); POTASSIUM 3.7 mEq/L (3.5-5.1); PROTEIN TOTAL 6.9 g/dL (6.0-8.3); SODIUM 137 mEq/L (136-145); TROPONIN I HIGH SENSITIVITY 11 ng/L (3.0-53); UREA NITROGEN BLOOD 13 mg/dL (9-23)
[2023-12-16 10:34] VITALS: BP 129/64; PULSE 88; RESP 20; TEMP 97.9
[2023-12-16] MEDS ORDERED: ACETAMINOPHEN 325MG TABLET PO PRN ×2 (12:30)
[2023-12-16] MEDS ORDERED: CLONIDINE 0.1MG TABLET PO PRN (12:30)
[2023-12-16] MEDS ORDERED: MAGNESIUM/ALUMINUM HYDROXIDE/SIMETHICONE 30ML UDC PO PRN (12:30)
[2023-12-16] MEDS ORDERED: ONDANSETRON HCL 4MG/2ML INJ IV PRN (12:30)
[2023-12-16] MEDS ORDERED: GUAIFENESIN 200MG/10ML SUGAR FREE UDC PO PRN (12:30)
[2023-12-16] MEDS ORDERED: IPRATROPIUM/ALBUTEROL 0.5-3(2.5)MG/3ML NEB HHN PRN (12:30)
[2023-12-16] MEDS ORDERED: DEXTROSE 50% WATER 50ML SYRINGE IV PRN (12:30)
[2023-12-16] MEDS ORDERED: APIX5TAB MT (13:55)
[2023-12-16] MEDS ORDERED: LORA10CA MT (13:55)
[2023-12-16] MEDS: BLOOD SUGAR DIAGNOSTIC STRIP TEST SCH (14:12)
[2023-12-16] MEDS ORDERED: AMIODARONE HCL 150 MG in DEXT 5% WATER 97 ML IV SCH (14:15)
[2023-12-16] MEDS ORDERED: INSULIN GLARGINE 100 UNITS/ML SUBCUT NR (14:15)
[2023-12-16] MEDS: INSULIN LISPRO 100 UNITS/ML SUBCUT SCH (14:21)
[2023-12-16] MEDS ORDERED: APIXABAN 5 MG TABLET PO SCH (17:00)
[2023-12-16] MEDS ORDERED: ATORVASTATIN CALCIUM 20MG TABLET PO SCH (21:00)
[2023-12-16] MEDS ORDERED: INSULIN GLARGINE 100 UNITS/ML SUBCUT SCH (22:00)
[2023-12-17] MEDS ORDERED: ASPIRIN 81MG EC TABLET PO SCH (09:00)
[2023-12-17] MEDS ORDERED: FUROSEMIDE 20MG TABLET PO SCH (09:00)
[2023-12-17] MEDS ORDERED: LORATADINE 10MG TABLET PO SCH (09:00)
== END 2023-12-16 14:55 | disposition left against medical advice (07) ==
LOC: ER 09:06 → EDBEDREQTM 12:07 → EDBEDREQ 12:07 → ER 14:55
DX: I47.20 Ventricular tachycardia, unspecified (principal); I48.91 Unspecified atrial fibrillation; I10 Essential (primary) hypertension; Z91.041 Radiographic dye allergy status; Z88.5 Allergy status to narcotic agent; Z79.899 Other long term (current) drug therapy; Z98.890 Other specified postprocedural states; Z90.49 Acquired absence of other specified parts of digestive tract
CPT/HCPCS: 80053; 83036; 83880; 85025; 85379; 84484; 36415; 71045; 93970; 93005; 96365; 99291; J0282; Z7610 ×3